=== PATIENT | female | born 1995 | race Caucasian/White ===

== ENCOUNTER 2016-09-05 13:45 | Emergency (ER) | payer BC, MEDICAID ==
[~2016-09-05] VITALS: Ht 149.9 cm; Wt 100.8 kg
[2016-09-05] MEDS ORDERED: DEXAMETHASONE 4 MG TABLET ONE (14:46)
[2016-09-05 14:49] VITALS: BP 164/91
[2016-09-05] MEDS ORDERED: DEXAMETHASONE 4 MG TABLET PO ONE (15:00)
== END 2016-09-05 14:55 | disposition home or self-care (01) ==
LOC: ED 14:40
DX: H66.002 Acute suppurative otitis media without spontaneous rupture of ear drum, left ear (principal); R05 Cough; R09.81 Nasal congestion
CPT/HCPCS: 99283

== ENCOUNTER 2017-08-10 20:00 | Emergency (ER) | payer BC ==
[~2017-08-10] VITALS: Ht 152.4 cm; Wt 105.3 kg
[2017-08-10 20:56] LABS: BASOPHILS # (AUTO) 0.05 x10^3/uL (0-0.1); BASOPHILS % (AUTO) 1 % (0-1); EOSINOPHILS # (AUTO) 0.14 x10^3/uL (0-0.4); EOSINOPHILS % (AUTO) 2 % (1-7); LYMPHOCYTES # (AUTO) 2.55 x10^3/uL (1-3.4); LYMPHOCYTES % (AUTO) 28 % (22-44); MD NO; MEAN CORPUSCULAR HEMOGLOBIN 31.3 pg (27.0-34.8); MEAN CORPUSCULAR HGB CONC 33.9 g/dL (32.4-35.8); MEAN CORPUSCULAR VOLUME 92.5 fL (80-100); MEAN PLATELET VOLUME 9.4 fL (7.4-10.4); MONOCYTES # (AUTO) 0.65 x10^3/uL (0.2-0.8); MONOCYTES % (AUTO) 7 % (2-9); NEUTROPHILS # (AUTO) 5.74 x10^3/uL (1.8-6.8); NEUTROPHILS % (AUTO) 63 % (42-75); PLATELET COUNT 261 x10^3/uL (130-400); RED BLOOD COUNT 4.73 x10^6/uL (3.82-5.3); RED CELL DISTRIBUTION WIDTH 12.9 % (9.6-15.2)
[2017-08-10 21:03] LABS: ALBUMIN 3.9 g/dL (3.4-5.0); ANION GAP 5 mmol/L (5-15); CALCIUM 8.6 mg/dL (8.5-10.1); CHLORIDE 108 mmol/L (98-107)
[2017-08-10 21:09] LABS: CREATININE 0.68 mg/dL (0.55-1.02)
[2017-08-10 21:21] LABS: MICROSCOPIC AUTO
[2017-08-10 21:23] LABS: CULTURE INDICATED? YES
[2017-08-10 21:35] VITALS: BP 152/94
== END 2017-08-10 22:26 | disposition home or self-care (01) ==
LOC: ED 22:20
DX: N92.4 Excessive bleeding in the premenopausal period (principal); N93.8 Other specified abnormal uterine and vaginal bleeding; F17.210 Nicotine dependence, cigarettes, uncomplicated; D64.9 Anemia, unspecified
CPT/HCPCS: 36415; 76830; 80048; 81001; 82040; 84703; 85025; 87086; 99285